=== PATIENT | female | born 1975 | race Caucasian/White ===

== ENCOUNTER 2021-11-06 10:13 | Outpatient (CLI) | payer BC, SELFPAY ==
--- NOTE | ~2021-11-06 | US_ITS ---
EXAMINATION: US pelvic complete w TV DATE: 11/06/2021 10:55 INDICATION: Excessive and frequent menstruation TECHNIQUE: Multiple transabdominal and endovaginal sonographic images of the pelvis were obtained. COMPARISON: None. FINDINGS: The uterus measures 11.4 x 5.5 x 6.2 cm. The endometrial complex measures 7 mm. There is a 2.4 cm isoechoic mass of the anterior uterine body, consistent with an intramural fibroid. The right ovary measures 2.7 x 2.8 x 4.8 cm. The left ovary measures 2.3 x 1.9 x 3.0 cm. There is normal vascul ar flow in the ovaries. There is no free fluid in the pelvis. IMPRESSION: 1. Uterine fibroid. Reviewed, dictated and finalized at location A. IMPRESSION: 1. Uterine fibroid.
--- NOTE | ~2021-11-06 | US_ITS ---
US axilla LT 11/06/2021 10:41 Indication: Localized swelling and palpable mass in the left axilla Procedure: High-resolution Limited ultrasound of the left axilla Comparison: No prior studies for comparison. Findings: In the subcutaneous tissues there is an oval hypoechoic mass with echogenic hilum measuring 6 mm. There is parallel orientation without significant internal vascularity. Impression: 1: Probable benign 6 mm subcutaneous mass in the left axilla in the area of palpable concern, most li jabari a lymph node. BI-RADS CATEGORY 3-PROBABLY BENIGN FINDING RECOMMENDATION: Six-month follow-up limited left axillary ultrasound recommended. Reviewed, dictated and finalized at location A. Impression: 1: Probable benign 6 mm subcutaneous mass in the left axilla in the area of pal pable concern, most likely a lymph node. BI-RADS CATEGORY 3-PROBABLY BENIGN FINDING RECOMMENDATION: Six-month follow-up limited left axillary ultrasound recommende sasha
== END 2021-11-06 10:14 ==
PROVIDERS: Visit Provider Obstetrics & Gynecology
DX: R22.30 Localized swelling, mass and lump, unspecified upper limb (principal); N92.0 Excessive and frequent menstruation with regular cycle; D25.9 Leiomyoma of uterus, unspecified
CPT/HCPCS: 76830; 76856; 76882

== ENCOUNTER 2022-03-09 12:24 | Outpatient (CLI) | payer BC, SELFPAY ==
--- NOTE | 2022-03-09 12:50 | ECG_ITS ---
Measurements Intervals [place] Rate: 74 P: 3 PA: 137 QRS: 16 QRSD: 84 T: 18 QT: 354 QTc: 393 Interpretive Statements SINUS RHYTHM RSR' IN V1 OR V2, PROBABLY NORMAL VARIANT LOW QRS VOLTAGE IN PRECORDIAL LEADS BORDERLINE R WAVE PROGRESSION, ANTERIOR LEADS BASELINE ARTIFACT- I, II, III, AVR, AVL, AVF, V1-V4, V6 BORDERLINE ECG NO PREVIOUS ECG AVAILABLE FOR COMPARISON Electronically Signed On 03-09-2022 14:26:14 CDT by Farshad Wall D.O.
[2022-03-09 13:38] LABS: Hematocrit 34.8 % (37.0-47.0); Hemoglobin 11.1 g/dL (12.0-15.0)
[2022-03-09 13:50] LABS: Anion Gap 14 mmol/L (8-16); Blood Urea Nitrogen 13 mg/dL (7-17); Calcium 9.7 mg/dL (8.4-10.2); Carbon Dioxide 23 mmol/L (22-30); Chloride 103 mmol/L (98-107); Estimated Glomerular Filt Rate > 60; Glucose 117 mg/dL (65-110); Potassium 4.1 mmol/L (3.4-5.0); Sodium 140 mmol/L (137-145)
== END 2022-03-09 12:25 | disposition home or self-care (01) ==
LOC: ANHSURGERY 12:37
PROVIDERS: Anesthesiology; Visit Provider Obstetrics & Gynecology
DX: D64.9 Anemia, unspecified (principal); N92.0 Excessive and frequent menstruation with regular cycle; E11.9 Type 2 diabetes mellitus without complications; R94.31 Abnormal electrocardiogram [ECG] [EKG]
CPT/HCPCS: 36415; 80048; 85014; 85018; 86850; 86900; 86901; 93005

== ENCOUNTER 2022-03-11 10:34 | Inpatient (IN) | payer BC, SELFPAY ==
[2022-03-06 17:09] VITALS: BMI 36.8
--- NOTE | 2022-03-06 18:04 | PC.NURSE ---
Report to the Outpatient Waiting Room, entrance under the green pavilion located off [facility], at 0600 on 03-11-22. OR Time: 0730. Time changes happen often and if your time is changed the preop area will call you the afternoon before. - You and your visitor will be asked to self-screen and do not enter if you have any COVID symptoms. - Only one visitor and NO children visitors are allowed at this time. - The patient visitor is requested to leave or wait in car when not with patient due to restrictions. - A mask is required within the hospital. Patients may have clear liquids (water, carbonated beverages, clear teas, apple juice) until 3 hours prior to surgery with a maximum of 20 ounces. 0430 - No food from midnight until time of surgery - Infants may have breast milk until 4 hours before surgery, formula 6 hours prior to surgery. - Children will be allowed to drink immediately following surgery. If applicable, please bring a bottle or sippy cup to assist with drinking. Juice, water, soda, and popsicles are readily available. For infants on formula, please bring formula the day of surgery. Pacifiers are allowed. Take the following medications with a SIP of water the morning of surgery: None Medications to discontinue per physician: Vitamins and supplements Date to take last dose: 03-08-22 Please no make-up, nail [place], hairspray, perfume, deodorant, or body powder the day of surgery. No jewelry (including any body piercings) or valuables the day of surgery, leave them at home. Please take a shower or bath the night before, or the morning of, surgery with an antibacterial soap. Wear comfortable, loose fitting clothing. Children are encouraged to wear pajamas. - Jewelry must be removed prior to entering the operating room. Rings and piercings that are not removed may be cut off. - The hospital will not accept responsibility for valuables. - Please leave all valuables, including medications, at home the day of surgery. If you are going home after surgery, a licensed route relief driver must drive you home. - NO public transportation without another adult. - We recommend that an adult stay with you for 24 hours following discharge. - We also recommend that you do not drive, make important decision, drink alcoholic beverages, or take any drugs that were not prescribed by your health care provider for at least 24 hours after your discharge time. For Pediatric surgeries, we recommend two adults accompany the child home (only one inside the building at this time). Follow any additional instructions given to you from your surgeon. If you or anyone in your household have experienced Covid symptoms in the past week, please notify your surgeon or the nurse liaison at the phone number below for possible testing. Telephone instructions given to Jeanne Becker and asked if any additional questions and then verbalized understanding. Patient advised to call surgeon office or pre surgery nurse liaison [phone] if any additional questions.
--- NOTE | 2022-03-10 12:44 | WPDANESEPPF ---
Anes - Initial Pre Proc Eval Procedure: Operation Date: 03/11/22 07:30 Proposed Procedures p Total Abdominal Hysterectomy with Bilateral Salpingectomy, Possible Unilateral Bilateral Oophorectomy - Rohit Siu MD Date/Time: 03/10/22 12:44 Surgeon: Rohit Siu MD Pre Op Diagnosis: menorrhagia, fibroids Patient Data Age: 46 Gender: F Height: 1.63 m Weight: 97.52 kg Allergies Allergy/AdvReac Type Severity Reaction Status Date / Time Penicillins Allergy Intermediate throat Verified 03/06/22 17:05 swelling, hives cat dander Allergy Mild Itching Verified 03/06/22 17:05 dog dander Allergy Mild Itching Verified 03/06/22 17:05 Home Medications Medication Instructions Recorded Confirmed Type atorvastatin 10 mg tablet 10 mg PO DAILY 09/30/21 03/06/22 History citalopram 20 mg tablet 20 mg PO DAILY 09/30/21 03/06/22 History ferrous sulfate 325 mg (65 mg 325 mg PO DAILY 09/30/21 03/06/22 History iron) tablet (Feosol) metformin 500 mg tablet 500 mg PO BID 09/30/21 03/06/22 History apple cider vinegar 300 mg tablet 300 mg PO DAILY 03/06/22 03/06/22 History ascorbic acid 125 mg-collagen, 1 cap PO DAILY 03/06/22 03/06/22 History hydrolyzed 740 mg capsule (Collagen Plus Vitamin C) biotin 1 mg capsule 1 mg PO DAILY 03/06/22 03/06/22 History thuorkq-feljwimip-onjq 333 mg-133 1 tablet PO DAILY 03/06/22 03/06/22 History mg-5 mg tablet cinnamon bark 500 mg capsule 500 mg PO DAILY 03/06/22 03/06/22 History (Cinnamon) Patient hx anesthesia problems: post op nausea/vomiting Family hx anesthesia problems: none Results Review: All pre-operative results and documents have been reviewed as part of the pre-operative evaluation. [facility] Past Medical History Medical History (Updated 03/11/22 @ 07:04 by Britton Ramires DO) Acid reflux Anemia Diabetes Elevated lipids Surgical History Surgical History History of tubal ligation Previous section Family History Family History Mother Hypertension Uterine cancer Grandparent Cerebrovascular accident Family history of malignant neoplasm of breast Father Carcinoma of colon Other Carcinoma of colon Uterine cancer Social History Social History Smoking status: Never smoker Second hand tobacco smoke exposure: No Alcohol intake: current Alcohol use details: rarely Substance use: never Substance use type: does not use Living arrangements: with family Additional living arrangements comments: travels often Spiritual care concerns: No Anes - Eval Final PreProcedure Day of Procedure 03/10/22 12:44 Patient weight: obese Heart: regular rate and rhythm Lungs: clear to auscultation Airway: Mallampati scale class II Neurological: alert and oriented Last oral intake: >/= 8 hours ASA classification: III Emergent: no Anesthetic plan: proceed Anesthesia type and monitoring: general ETT and standard monitoring Results Review: All pre-operative results and documents have been reviewed as part of the pre-operative evaluation. Informed Consent: The patient's anesthetic plan and its attendant risks and benefits were discussed with the patient/family/POA. Questions were solicited and answers provided to the satisfaction of the patient/family/POA.
--- NOTE | 2022-03-10 16:14 | PM.IMHP ---
H&P: HPI History of Present Illness Date/Time: 03/10/22 16:14 Chief Complaint: heavy periods Narrative: Patient with a prior tubal ligation with a long history of menorrhagia. She has tried control pills in the past and has also tried Lysteda. She did not notice significant improvement with either. She had an endometrial biopsy which was benign. She had a ultrasound which showed a small fibroid. Uterus overall size mildly enlarged. She has been offered IUD hormonal progesterone only options. She declines all options. She desires definitive treatment of the menorrhagia. She has a history of severe diffusion in her pelvis from a prior . On exam her uterus palpates to be fixed to her anterior abdominal wall. She has been recommended for the abdominal approach for the hysterectomy. She does have pelvic pain also. Review of Systems Review of Systems: All systems reviewed & are unremarkable except as noted in HPI and below Constitutional: Constitutional: Reports no additional constitutional complaints Eyes: Eyes: Reports no additional eye complaints Cardiovascular: Cardiovascular: Reports no additional cardiovascular complaints Respiratory: Respiratory: Reports no additional respiratory complaints Gastrointestinal: Gastrointestinal: Reports no additional gastrointestinal complaints Genitourinary: Genitourinary: Reports no additional female genitourinary complaints and Reports as per HPI Integumentary/Breasts: Skin/Breast: Reports system reviewed and no additional complaints, except as docu Neurologic: Reports system reviewed and no additional complaints, except as documented Psychiatric: Psychiatric: Reports no additional psychiatric complaints Hematologic/Lymphatic: Hematologic/Lymphatic: Reports no additional hematologic/lymphatic complaints PMFSH Past Medical History Medical History Acid reflux Anemia Diabetes Elevated lipids Hypertension Surgical History Surgical History History of tubal ligation Previous section Family History Family History Mother Hypertension Uterine cancer Grandparent Cerebrovascular accident Family history of malignant neoplasm of breast Father Carcinoma of colon Other Carcinoma of colon Uterine cancer Social History Social History Smoking status: Never smoker Second hand tobacco smoke exposure: No Alcohol intake: current Alcohol use details: rarely Substance use: never Substance use type: does not use Additional living arrangements comments: travels often Spiritual care concerns: No Meds Home Medications and Allergies Home Medications Medication Instructions Recorded Confirmed Type atorvastatin 10 mg tablet 10 mg PO DAILY 09/30/21 03/06/22 History citalopram 20 mg tablet 20 mg PO DAILY 09/30/21 03/06/22 History ferrous sulfate 325 mg (65 mg 325 mg PO DAILY 09/30/21 03/06/22 History iron) tablet (Feosol) metformin 500 mg tablet 500 mg PO BID 09/30/21 03/06/22 History apple cider vinegar 300 mg tablet 300 mg PO DAILY 03/06/22 03/06/22 History ascorbic acid 125 mg-collagen, 1 cap PO DAILY 03/06/22 03/06/22 History hydrolyzed 740 mg capsule (Collagen Plus Vitamin C) biotin 1 mg capsule 1 mg PO DAILY 03/06/22 03/06/22 History zavznwa-dyvpqjarn-vzqw 333 mg-133 1 tablet PO DAILY 03/06/22 03/06/22 History mg-5 mg tablet cinnamon bark 500 mg capsule 500 mg PO DAILY 03/06/22 03/06/22 History (Cinnamon) Allergies Allergy/AdvReac Type Severity Reaction Status Date / Time Penicillins Allergy Intermediate throat Verified 03/06/22 17:05 swelling, hives cat dander Allergy Mild Itching Verified 03/06/22 17:05 dog dander Allergy Mild Itching Verified 03/06/22 17:05
[2022-03-11] VITALS (11 sets, daily range): BP systolic 120–159; BP diastolic 63–81; PULSE 66–93; RESP 12–24; TEMP 36.1–37.2; O2SAT 95–100
[2022-03-11] MEDS: ACETAMINOPHEN 500 MG TABLET 1000 MG PO (06:21)
[2022-03-11] MEDS: KETOROLAC 15 MG/ML VIAL (*BKC) IV PUSH (06:23)
[2022-03-11] MEDS: LACTATED RINGERS 1,000 ML 30 ML IV CONT ×2 (06:45→10:46)
[2022-03-11] MEDS: SCOPOLAMINE 1.5 MG PATCH TRANSDERM (07:15)
--- NOTE | 2022-03-11 07:22 | WPDHPUPDATE1 ---
History and Physical Update Update Date/Time: 03/11/22 07:22 History and Physical has been reviewed, including an updated exam of the patient. There are NO changes in the patient's condition. Risks, benefits, and alternatives have been discussed and questions answered. Patient agrees to proceed with procedure.
[2022-03-11 07:24] LABS: Glucose Point of Care 146 mg/dl (65-105)
[2022-03-11] MEDS: ceFAZolin 2 GM/D5W 50 ML 2 GM/50 ML BAG IVPB (07:26)
[2022-03-11 11:04] LABS: Glucose Point of Care 199 mg/dl (65-105)
[2022-03-11] MEDS: ONDANSETRON INJ 4 MG/2 ML VIAL IV PUSH (11:11)
--- NOTE | 2022-03-11 11:12 | PM.OP ---
Procedure Note - Brief Procedure Note - Brief Date of procedure: 03/11/22 Pre-op diagnosis: menorrhagia, fibroids, pelvic pain Post-op diagnosis: Other (Same and 4. Endometriosis 5. Severe pelvic adhesive disease) Procedure performed: 1. Total abdominal hysterectomy with right salpingo-oophorectomy 2. Left salpingectomy 3 Lysis of adhesions Anesthesia: GETA Surgeon: Rohit Siu MD Estimated blood loss (mL): 100 Urine output (mL): 225 Drains: No Packing: No Pathology: Yes (uterus and right and left fa) Complications: No immediate complications Condition: Stable Disposition: Floor Findings: extensive adhesions of omentum to the anterior uterus along the vesicouterine peritoneum, adhesions of omentum to right ovary and fallopian tubes with what appeared to be endometriosis implants at area, small area of endometriosis implant on anterior uterus, uterus bulky 12 week size. Left ovary normal appearing.
--- NOTE | 2022-03-11 11:18 | W.PM.PROC2 ---
Procedure Note - Detailed Date of Procedure 03/12/22 Pre-op Diagnosis menorrhagia, fibroids, pelvic pain Post-op Diagnosis Other (menorrhagia, endometriosis, extensive pelvic adhesive disease) Procedure Performed Total abdominal hysterectomy with bilateral salpingectomy and right oophorectomy. Extensive lysis of adhesions. Surgeon Rohit Siu MD [employer] [place] Anesthesia General Indications heavy periods, pelvic pain. Findings Enlarged uterus, endometriosis implants on uterus and right adnexa, severe pelvic adhesive disease. Description of Procedure Under general anaesthetic the patient was placed in the supine position.A garcia catheter inserted, the patient was prepped and draped in the usual sterile fashion. A Pfannensteil skin incision was made through the patient?s previous incision. There was a lot of scarring of the subcutaneous tissue to the fascia. The incision was carried down to the fascia with sharp and cautery dissection of the subcutaneous tissue. The fascia was incised transversely and dissected off the rectus muscle using sharp and cautery dissection. Electrocautery was used for hemostasis. The muscles were dissected superiorly and inferiorly. The peritoneum was opened taking care not to injure any underlying structures.The pelvic organs were visualized. The uterus was enlarged. The Belfor retractor was placed after lap sponges were placed on rectus muscles to protect muscles. Bowel was packed away into the upper abdomen and paracolic gutters to improve visualization and protect adjacent tissue. The omentum was noted to be adhesed to the anterior uterus extensively and near the attachment of the adhesed vesicouterine peritoneum. The adhesions were carefully dissected from the anterior uterus and vesicouterine peritoneum. There was also an extensive attachment of omentum to right ovary and fallopian tube. The omental tissue was clamped and cauterized and suture ligated from the attachment to the adnexa. There was noted to be dark implants consistent with endometriosis at this site and dark implant along anterior fundus of uterus. The bladder was further dissected from the lower uterus on the right. The extensive lysis of adhesions took additional 30 minutes to perform to be able to perform the procedure. The right round ligament was visualized after the adhesions were taken down. The round ligament was suture ligated. The anterior leaf of the broad ligament dissected anteriorly and the bladder was further dissected from the anterior uterus. An opening was made in the posterior broad ligament with cautery. The right infundibular pelvic ligament was ligated with ligature. The left tubes and ovaries appeared normal bilaterally. The cornea were grasped using Anaid clamps-curved clamps and the uterus elevated. The round ligament on the left was grasped and divided using cautery and then suture ligated. The anterior leaf of the broad ligament was divided and the bladder was dissected to level of lower cervix. An avascular window was found in the posterior leaf of the broad ligament and a hole opened. The fallopian tube was ligated from mesosalpinx with ligature. The uteroovarian ligament was ligated with the ligature. The uterine arteries on both sides were skeletonized. The ascending uterine vessels on both sides were ligated. The uterine vessels were ligated with ligature bilaterally. The cardinal ligaments were ligated with ligature. Both corners of the vaginal vault were clamped. The cervix was cut from vagina at the clamps with angie scissors. The vaginal pedicles were suture ligated with 0 vircrl. The vaginal was closed with interrupted figure of eight sutures of 0 vicryl. There was area on the left that had some oozing. Figure of eight stitch and flow seal and hemoderm was used at the site. Hemostasis was obtained. All pedicles were then sequentially checked for hemostasis which appeared excellent. The pelvis was irrigated.
[2022-03-11] MEDS: diphenhydrAMINE HCl INJ 50 MG/ML VIAL 25 MG IV PUSH (11:27)
[2022-03-11] MEDS: fentaNYL CITRATE INJ (*CRX) 100 MCG/2 ML VIAL 25 MCG IV PUSH ×3 (11:39→11:54)
[2022-03-11] MEDS: DEXTROSE 5%/0.45% SOD CHL 1,000 ML 125 ML IV CONT (12:34)
[2022-03-11] MEDS: MORPHINE SULFATE (*CRX) 4 MG/ML INJ IV PUSH ×3 (12:47→21:45)
[2022-03-11 15:21] LABS: Glucose Point of Care 193 mg/dl (65-105)
[2022-03-11] MEDS: KETOROLAC 30 MG/ML VIAL (*BKC) IV PUSH (16:35)
[2022-03-11] MEDS: LACTATED RINGERS 1,000 ML 125 ML IV CONT (18:58)
[2022-03-11] MEDS: CITALOPRAM HYDROBROMIDE 20 MG TABLET PO (21:42)
[2022-03-11] MEDS: ATORVASTATIN 10 MG TABLET PO (21:42)
[2022-03-12] MEDS: LACTATED RINGERS 1,000 ML 125 ML IV CONT (03:47)
[2022-03-12 04:45] VITALS: BP 139/76; PULSE 71; RESP 14; TEMP 36.4; O2SAT 100
[2022-03-12] MEDS: oxyCODONE HCL (*CRX) 5 MG TAB IR PO (04:59)
[2022-03-12 05:36] LABS: Basophils Percent Auto 0.3 % (0.2-1.2); Hematocrit 29.2 % (37.0-47.0); Hemoglobin 9.4 g/dL (12.0-15.0); Immature Granulocyte Absolute 0.06 K/mm3 (0.00-0.031); Immature Granulocyte Percent A 0.4 % (0-0.5); Lymphocytes Absolute Auto 2.44 K/mm3 (0.9-3.2); Lymphocytes Percent Auto 17.3 % (18.3-44.2); Mean Corpuscular HGB Conc 32.2 g/dl (32-36); Mean Corpuscular Hemoglobin 26.9 pg (26-34); Mean Corpuscular Volume 83.4 fl (80-100); Mean Platelet Volume 10.2 fl (7.4-10.4); Monocytes Absolute Auto 1.1 K/mm3 (0.1-0.6); Monocytes Percent Auto 7.9 % (2.6-8.5); Neutrophils Absolute Auto 10.5 K/mm3 (1.3-6.7); Neutrophils Percent Auto 74.1 % (45.5-73.1); Platelet Count Result 213 k/mm3 (150-375); Red Cell Distribution Width 16.2 % (11.5-14.5); White Blood Count 14.1 K/mm3 (4.5-10.0)
[2022-03-12 08:10] VITALS: BP 127/53; PULSE 71; RESP 18; TEMP 36.6; O2SAT 100
[2022-03-12] MEDS: metFORMIN HCL 500 MG TABLET PO ×2 (09:14→17:41)
--- NOTE | 2022-03-12 09:47 | P.PNAN_ITS ---
Anes - Prog Note Post-Op Date/Time: 03/12/22 09:47 Cardiovascular status: normal Respiratory status: normal Airway patency: baseline Mental status: baseline Post-Op hydration status: normal Vital Signs: Last Vital Signs Temp 36.6 C 03/12/22 08:10 Pulse 71 03/12/22 08:10 Resp 18 03/12/22 08:10 BP 127/53 L 03/12/22 08:10 Pulse Ox 100 03/12/22 08:10 O2 Del Method Room Air 03/12/22 07:35 O2 Flow Rate 10 03/11/22 11:15 Pain Score (VAS): 2 I/O: Intake & Output 03/11/22 03/12/22 03/12/22 23:59 07:59 15:59 Intake Total 220 2250 Output Total 800 2650 Balance -580 -400 Laboratory Tests 03/12/22 05:12 03/11/22 03/11/22 03/12/22 10:51 15:16 05:12 WBC 14.1 H RBC 3.50 L Hgb 9.4 L Hct 29.2 L MCV 83.4 MCH 26.9 MCHC 32.2 RDW 16.2 H Plt Count 213 MPV 10.2 Immature Gran % (Auto) 0.4 Neut % (Auto) 74.1 H Lymph % (Auto) 17.3 L [place] % (Auto) 7.9 Eos % (Auto) 0.0 Baso % (Auto) 0.3 Lymph # (Auto) 2.44 [place] # (Auto) 1.1 H Eos # (Auto) 0.0 Baso # (Auto) 0.0 Abs Immat Gran (auto) 0.06 H Absolute Neuts (auto) 10.5 H Absolute Nucleated RBC 0.0 Nucleated RBC % 0.0 POC Capillary Glucose 199 H 193 H Post-procedural complaints: none Patient Feedback: Patient satisfied with anesthetic care.
[2022-03-12] MEDS: HYDROcodone/acetaminophen (*CRX) 5-325 MG TABLET 1 TAB PO ×2 (09:50→14:29)
[2022-03-12] MEDS: KETOROLAC 10 MG TABLET PO ×2 (11:33→17:40)
[2022-03-12] MEDS: SALINE 0.65% NAS SOLN 44 ML BTL 1 SPRAY NASAL (15:19)
[2022-03-12 19:28] VITALS: BP 136/70; PULSE 91; RESP 14; TEMP 37.5; O2SAT 99
--- NOTE | 2022-03-12 21:14 | PM.GYNPNOP ---
[employer] - A/P Assessment and plan (1) Status post abdominal hysterectomy: Code(s): Z90.710 - Acquired absence of both cervix and uterus Status: Acute Plan POD1 s/p GABE/BS/RO- She is doing well, will start oral pain medicaton, advance diet, encourage ambulation. Routine post op care. Postoperative Procedures: Procedures Operation Date: 03/11/22 07:30 Actual Procedure Side Surgeon p Total Abdominal Hysterectomy with Bilateral Salpingectomy, Right Oophorectomy Rohit Siu MD Time Spent With Patient Time: Total time spent is greater than 50% in coordination of care (as documented) at patient's floor/unit and/or counseling patient: Time with patient: less than 15 minutes [employer]- PN:Subj Post-Op Subjective Date/time seen: 03/12/22 0820 Interval history: She has sat up in chair and ambulated. She has flatus. She has tolerated liquids. Has adequate pain control. No leg pain. No SOB. Small amount of vaginal bleeding. Exam Const: General: comfortable and no acute distress Eyes: General: appearance normal, both eyes and all related structures Resp: Effort & Inspection: normal respiratory effort Auscultation: clear to auscultation bilaterally Cardio: Rate: regular rate Rhythm: regular rhythm GI: Other: bowel sounds present, incision intact no drainage erythema or induration Extrem: General: normal to inspection and no calf tenderness [employer] - PN: Obj Data Vital Signs Vital Signs: Vital Signs - 24 hr 03/11/22 23:30 03/12/22 04:45 03/11/22 23:30 Temperature 99.0 F 97.6 F Pulse Rate 74 71 74 Respiratory Rate 14 14 14 Blood Pressure 120/68 139/76 Pulse Oximetry 98 100 98 Oxygen Delivery Room Air 03/12/22 04:45 03/12/22 07:35 03/12/22 08:10 Temperature 97.9 F Pulse Rate 71 71 Respiratory Rate 14 18 Blood Pressure 127/53 L Pulse Oximetry 100 100 Oxygen Delivery Room Air Room Air Intake/Output Intake/Output: Intake & Output 03/09/22 03/10/22 03/11/22 03/12/22 23:59 23:59 23:59 23:59 Intake Total 470 2250 Output Total 1370 3150 Balance -900 -900 Meds/Results Medications: Active Medications Generic Name Dose Route Start Last Admin Trade Name Freq PRN Reason Stop Dose Admin Hydrocodone Bitart/Acetaminophen 1 tab 03/12/22 09:15 03/12/22 14:29 Hydrocodone/Acetaminophen (*Crx) 5-325 Mg Tablet PO 1 tab Q4H PRN Administration Pain Rated 7-10 Atorvastatin Calcium 10 mg 03/11/22 21:00 03/11/22 21:42 Atorvastatin 10 Mg Tablet PO 10 mg HS MEHRAN Administration Bisacodyl 10 mg 03/11/22 10:34 Bisacodyl 10 Mg Suppository RECTAL ONCE PRN Constipation Citalopram Hydrobromide 20 mg 03/11/22 21:00 03/11/22 21:42 Citalopram Hydrobromide 20 Mg Tablet PO 20 mg HS MEHRAN Administration Fentanyl Citrate 25 mcg 03/10/22 12:44 03/11/22 11:54 Fentanyl Citrate Inj (*Crx) 100 Mcg/2 Ml Vial IV PUSH 25 mcg Q2M PRN Administration Pain Ketorolac Tromethamine 10 mg 03/12/22 09:15 03/12/22 17:40 Ketorolac 10 Mg Tablet PO 10 mg Q6H PRN Administration Pain Rated 4-6 Metformin HCl 500 mg 03/11/22 17:00 03/12/22 17:41 Metformin Hcl 500 Mg Tablet PO 500 mg BIDWM MEHRAN Administration Naloxone HCl 0.1 mg 03/11/22 10:34 Naloxone Hcl 0.4 Mg/Ml Vial IV PUSH Q2M PRN Respiratory rate less than 10 Ondansetron HCl 4 mg 03/11/22 10:34 03/11/22 11:11 Ondansetron Inj 4 Mg/2 Ml Vial IV PUSH 4 mg Q6H PRN Administration Nausea Sodium Chloride 1 spray 03/12/22 14:50 03/12/22 15:19 Saline 0.65% Jef Soln 44 Ml Btl NASAL 1 spray Q6HR PRN Administration Dry Nasal Passages Zolpidem Tartrate 10 mg 03/12/22 09:17 Zolpidem Tartrate (*Crx) 5 Mg Tablet PO HS PRN Insomnia Labs CBC & Chem 7: 03/12/22 05:12 Labs: Laboratory Results - last 24 hr 03/12/22 05:12 WBC 14.1 H RBC 3.50 L Hgb 9.4 L Hct 29.2 L MCV 83.4 MCH
[2022-03-12] MEDS: ZOLPIDEM TARTRATE (*CRX) 5 MG TABLET 10 MG PO (21:38)
[2022-03-12] MEDS: ATORVASTATIN 10 MG TABLET PO (21:38)
[2022-03-12] MEDS: CITALOPRAM HYDROBROMIDE 20 MG TABLET PO (21:39)
[2022-03-13] MEDS: KETOROLAC 10 MG TABLET PO ×2 (06:49→15:35)
[2022-03-13] MEDS: HYDROcodone/acetaminophen (*CRX) 5-325 MG TABLET 1 TAB PO ×3 (06:49→21:02)
[2022-03-13] MEDS: metFORMIN HCL 500 MG TABLET PO ×2 (06:49→16:38)
--- NOTE | 2022-03-13 07:17 | PM.GYNPNOP ---
BILL POSTER INSTALLER - A/P Assessment and plan (1) Status post abdominal hysterectomy: Code(s): Z90.710 - Acquired absence of both cervix and uterus Status: Acute Assessment and Plan: POD2 Encouraged ambulation and shower. Anticipate discharge tomorrow. Postoperative Procedures: Procedures Operation Date: 03/11/22 07:30 Actual Procedure Side Surgeon p Total Abdominal Hysterectomy with Bilateral Salpingectomy, Right Oophorectomy Rohit Siu MD Time Spent With Patient Time: Total time spent is greater than 50% in coordination of care (as documented) at patient's floor/unit and/or counseling patient: Time with patient: less than 15 minutes BILL POSTER INSTALLER- PN:Subj Post-Op Subjective Date/time seen: 03/13/22 07:17 Interval history: She has had small bowel movement, tolerated reg diet, no emesis or nausea. Positive flatus. She has ambulated once yesterday. No leg pain. Ambien helped. Scant spotting. Subjective: pain is well controlled and patient is tolerating oral intake Review of Systems Review of Systems: All systems reviewed & are unremarkable except as noted in HPI and below Cardiovascular: Cardiovascular: Reports no additional cardiovascular complaints Respiratory: Respiratory: Reports no additional respiratory complaints Gastrointestinal: Gastrointestinal: Reports belching, Denies nausea and Denies vomiting Genitourinary: Genitourinary: Reports no additional female genitourinary complaints Musculoskeletal: Musculoskeletal: Reports no additional musculoskeletal complaints Exam Const: General: comfortable and no acute distress Orientation/consciousness: oriented to person, oriented to place and oriented to time Resp: Effort & Inspection: normal respiratory effort GI: GI Palp: Yes Soft to palpation and No Tenderness to palpation present (GI) Auscultation: normal bowel sounds Other: incision intact no drainage Neuro: General: oriented to person, oriented to place and oriented to time Extrem: General: no calf tenderness Psych: Mental Status: mental status grossly normal BILL POSTER INSTALLER - PN: Obj Data Vital Signs Vital Signs: Vital Signs - 24 hr 03/12/22 07:35 03/12/22 08:10 03/12/22 19:28 Temperature 97.9 F Pulse Rate 71 Respiratory Rate 18 Blood Pressure 127/53 L Pulse Oximetry 100 Oxygen Delivery Room Air Room Air 03/12/22 19:28 Temperature 99.5 F Pulse Rate 91 Respiratory Rate 14 Blood Pressure 136/70 Pulse Oximetry 99 Oxygen Delivery Intake/Output Intake/Output: Intake & Output 03/10/22 03/11/22 03/12/22 03/13/22 23:59 23:59 23:59 23:59 Intake Total 470 2250 875 Output Total 7630 0020 850 Balance -900 -900 25 Meds/Results Medications: Active Medications Generic Name Dose Route Start Last Admin Trade Name Freq PRN Reason Stop Dose Admin Hydrocodone Bitart/Acetaminophen 1 tab 03/12/22 09:15 03/13/22 06:49 Hydrocodone/Acetaminophen (*Crx) 5-325 Mg Tablet PO 1 tab Q4H PRN Administration Pain Rated 7-10 Atorvastatin Calcium 10 mg 03/11/22 21:00 03/12/22 21:38 Atorvastatin 10 Mg Tablet PO 10 mg HS MEHRAN Administration Bisacodyl 10 mg 03/11/22 10:34 Bisacodyl 10 Mg Suppository RECTAL ONCE PRN Constipation Citalopram Hydrobromide 20 mg 03/11/22 21:00 03/12/22 21:39 Citalopram Hydrobromide 20 Mg Tablet PO 20 mg HS MEHRAN Administration Fentanyl Citrate 25 mcg 03/10/22 12:44 03/11/22 11:54 Fentanyl Citrate Inj (*Crx) 100 Mcg/2 Ml Vial IV PUSH 25 mcg Q2M PRN Administration Pain Ketorolac Tromethamine 10 mg 03/12/22 09:15 03/13/22 06:49 Ketorolac 10 Mg Tablet PO 10 mg Q6H PRN Administration Pain Rated 4-6 Metformin HCl 500 mg 03/11/22 17:00 03/13/22 06:49 Metformin Hcl 500 Mg Tablet PO 500 mg BIDWM MEHRAN Administration Naloxone HCl 0.1 mg 03/11/22 10:34 Naloxone Hcl 0.4 Mg/Ml Vial IV PUSH Q2M PRN Respiratory rate less than 10 Ondansetron HCl 4 m
[2022-03-13 07:45] VITALS: BP 120/57; PULSE 70; RESP 18; TEMP 36.3; O2SAT 99
[2022-03-13 21:00] VITALS: BP 129/62; PULSE 77; RESP 18; TEMP 37.1; O2SAT 99
[2022-03-13] MEDS: ATORVASTATIN 10 MG TABLET PO (21:02)
[2022-03-13] MEDS: CITALOPRAM HYDROBROMIDE 20 MG TABLET PO (21:02)
[2022-03-14] MEDS: HYDROcodone/acetaminophen (*CRX) 5-325 MG TABLET 1 TAB PO ×2 (02:22→08:22)
[2022-03-14 08:00] VITALS: BP 131/73; PULSE 66; RESP 18; TEMP 36.2; O2SAT 96
[2022-03-14] MEDS: metFORMIN HCL 500 MG TABLET PO (08:22)
--- NOTE | 2022-03-14 09:44 | PM.GYNPNOP ---
LAST CHALKER - A/P Assessment and plan (1) Status post abdominal hysterectomy: Code(s): Z90.710 - Acquired absence of both cervix and uterus Status: Acute Assessment and Plan: POD#3 doing well continue routine postoperative care dc home today in stable condition emergency precautions reviewed f/u in office in 2 weeks for postop visit all questions and concerns addressed Postoperative Procedures: Procedures Operation Date: 03/11/22 07:30 Actual Procedure Side Surgeon p Total Abdominal Hysterectomy with Bilateral Salpingectomy, Right Oophorectomy Rohit Siu MD Time Spent With Patient Time: Total time spent is greater than 50% in coordination of care (as documented) at patient's floor/unit and/or counseling patient: Time with patient: less than 15 minutes LAST CHALKER- PN:Subj Post-Op Subjective Date/time seen: 03/14/22 09:44 Patient doing well this AM. Minimal pain near incision. Well controlled with medication. Denies any headache, chest pain, SOB, N/V. Tolerating PO diet. Ambulating without difficulty. Denies any vaginal bleeding. Voiding well. +flatus and BM. Interval history: She has had small bowel movement, tolerated reg diet, no emesis or nausea. Positive flatus. She has ambulated once yesterday. No leg pain. Ambien helped. Scant spotting. Review of Systems Review of Systems: All systems reviewed & are unremarkable except as noted in HPI and below Exam Const: General: cooperative, healthy appearing, comfortable and no acute distress GI: Inspection: non-distended GI Palp: Yes Soft to palpation and No Tenderness to palpation present (GI) Other: inc c/d/i Extrem: Right lower extremity: no edema Left lower extremity: no edema Other: no calf tenderness LAST CHALKER - PN: Obj Data Vital Signs Vital Signs: Vital Signs - 24 hr 03/13/22 21:00 Temperature 37.1 C Pulse Rate 77 Respiratory Rate 18 Blood Pressure 129/62 Pulse Oximetry 99 Intake/Output Intake/Output: Intake & Output 03/11/22 03/12/22 03/13/22 03/14/22 23:59 23:59 23:59 23:59 Intake Total 470 2250 875 Output Total 1370 3150 850 Balance -900 -900 25 Meds/Results Medications: Active Medications Generic Name Dose Route Start Last Admin Trade Name Freq PRN Reason Stop Dose Admin Hydrocodone Bitart/Acetaminophen 1 tab 03/12/22 09:15 03/14/22 08:22 Hydrocodone/Acetaminophen (*Crx) 5-325 Mg Tablet PO 1 tab Q4H PRN Administration Pain Rated 7-10 Atorvastatin Calcium 10 mg 03/11/22 21:00 03/13/22 21:02 Atorvastatin 10 Mg Tablet PO 10 mg HS MEHRAN Administration Bisacodyl 10 mg 03/11/22 10:34 Bisacodyl 10 Mg Suppository RECTAL ONCE PRN Constipation Citalopram Hydrobromide 20 mg 03/11/22 21:00 03/13/22 21:02 Citalopram Hydrobromide 20 Mg Tablet PO 20 mg HS MEHRAN Administration Fentanyl Citrate 25 mcg 03/10/22 12:44 03/11/22 11:54 Fentanyl Citrate Inj (*Crx) 100 Mcg/2 Ml Vial IV PUSH 25 mcg Q2M PRN Administration Pain Ketorolac Tromethamine 10 mg 03/12/22 09:15 03/13/22 15:35 Ketorolac 10 Mg Tablet PO 10 mg Q6H PRN Administration Pain Rated 4-6 Metformin HCl 500 mg 03/11/22 17:00 03/14/22 08:22 Metformin Hcl 500 Mg Tablet PO 500 mg BIDWM MEHRAN Administration Naloxone HCl 0.1 mg 03/11/22 10:34 Naloxone Hcl 0.4 Mg/Ml Vial IV PUSH Q2M PRN Respiratory rate less than 10 Ondansetron HCl 4 mg 03/11/22 10:34 03/11/22 11:11 Ondansetron Inj 4 Mg/2 Ml Vial IV PUSH 4 mg Q6H PRN Administration Nausea Sodium Chloride 1 spray 03/12/22 14:50 03/12/22 15:19 Saline 0.65% Jef Soln 44 Ml Btl NASAL 1 spray Q6HR PRN Administration Dry Nasal Passages Zolpidem Tartrate 10 mg 03/12/22 09:17 03/12/22 21:38 Zolpidem Tartrate (*Crx) 5 Mg Tablet PO 10 mg HS PRN Administration Insomnia Labs CBC & Chem 7: 03/12/22 05:12
--- NOTE | 2022-03-14 09:49 | PM.DS ---
DS: Admitting Diagnosis Discharge Date 03/14/22 Admitting Diagnosis Menorrhagia DS: Discharge Diagnosis Discharge Diagnosis (1) Status post abdominal hysterectomy: Code(s): Z90.710 - Acquired absence of both cervix and uterus Status: Acute DS: Summary Hospital Course Hospital Course: Uneventful Time Spent with Patient Time attestation: Total time spent providing and/or coordinating discharge services: DS: Data Data Completed and Pending Completed studies during hospitalization: Pending at discharge 03/11/22 09:22 Surgical [PTH] Routine Discharge Plan Discharge Attending physician on discharge: Val Guerrero Discharging Clinician: Val Guerrero Anticipated Discharge Date/Time: 03/14/22 09:50 Patient Disposition: Home, Self-Care Activity: as tolerated and pelvic rest Diet: regular Discharge Instructions: Call office ([phone]) to schedule the following appointments: 1. Postoperative/wound check in 2 weeks. 2. Postoperative visit in 4-6 weeks. You may take Ibuprofen 600mg every 6 hours as needed for pain. I have sent a prescription for a stronger pain medication, Interior, to your pharmacy. You may take this as prescribed for breakthrough pain (pain that is not controlled with Ibuprofen). No driving for at least two weeks. You also may not drive while taking narcotics. Pain medication may make you constipated. It may be helpful to take an [id number] stool softener, such as Colace and/or Senokot, along with the pain medication to help lessen constipation. Call office or go to ED for pain not controlled with medication, headache, chest pain, shortness of breath, fever, chills, persistent nausea or vomiting, severe abdominal pain, heavy vaginal bleeding >2 pads/hour, foul vaginal discharge or odor, any redness near incision, severe pain, pus or drainage from incision site. Patient Instructions: Antibiotic Form Stand Alone Forms: General Discharge Information Follow-up/Referrals: Val Guerrero MD [Physician] - Discharge Medications: New hydrocodone-acetaminophen 5-325 mg Tablet 1 - 2 tablet PO Q4-6H PRN (Reason: Pain Rated 7-10) Qty: 30 0RF Continued ferrous sulfate [Feosol] 325 mg (65 mg iron) tablet 325 mg PO DAILY metformin 500 mg tablet 500 mg PO BID citalopram 20 mg tablet 20 mg PO DAILY Rx Instructions: patient takes HS atorvastatin 10 mg tablet 10 mg PO DAILY Rx Instructions: patients takes HS apple cider vinegar 300 mg Tablet 300 mg PO DAILY cinnamon bark [Cinnamon] 500 mg Capsule 500 mg PO DAILY Collagen Plus Vitamin C 125-740 mg Capsule 1 cap PO DAILY biotin 1 mg Capsule 1 mg PO DAILY [id number]-[id number]-ocyt 333-133-5 mg Tablet 1 tablet PO DAILY Rx Instructions: also has vitamin D in it Date of admission: 03/11/22 10:34 Primary Care Provider: PHYSICIAN NOT ON STAFF,NONSTAFF Admitting Provider: Rohit Siu Attending physician on admission: Rohit Siu Condition: Stable
== END 2022-03-14 11:10 | disposition home or self-care (01) | DRG 743 ==
LOC: ANHSURGERY 11:16 → ANHOB2 03-12 09:41
PROVIDERS: Admitting Provider Obstetrics & Gynecology; Visit Provider Student in an Organized Health Care Education/Training Program
PROC: 0UT94ZZ Resection of Uterus, Percutaneous Endoscopic Approach (ICD-10-PCS; principal; 2022-03-11 07:30)
DX: N92.0 Excessive and frequent menstruation with regular cycle (principal); N73.6 Female pelvic peritoneal adhesions (postinfective); D25.9 Leiomyoma of uterus, unspecified; R10.2 Pelvic and perineal pain; N80.9 Endometriosis, unspecified
CPT/HCPCS: 36415; 82948; 85025; 88307; A9270; J0131; J0690; J1100; J1170; J1200; J1885; J2250; J2270; J2405; J2704; J2710; J3010; J7120